=== PATIENT | male | born 1995 | race Caucasian/White ===

== ENCOUNTER 2022-12-24 07:24 | Observation (INO) | payer OTHER, SELFPAY ==
[2022-12-24] VITALS (13 sets, daily range): BP systolic 120–168; BP diastolic 63–106; PULSE 60–87; RESP 12–20; TEMP 35.7–36.8; O2SAT 97–100
--- NOTE | ~2022-12-24 | CT_ITS ---
EXAMINATION: CT brain wo con DATE: 12/24/2022 11:02 INDICATION: Syncope. TECHNIQUE: Computed tomography (CT) of the head was performed without intravenous contrast. The mA wa s adjusted according to patient size. Iterative reconstruction technique was employed. The dose-lengt h product was 605.33 mGy-cm. COMPARISON: None FINDINGS: There is no intracranial hemorrhage, acute infarction, or abnormal intracranial mass lesion . The ventricles are normal in size. There is mild mucosal thickening in right maxillary sinus. The o rbits are normal. The mastoid air cells are normal. IMPRESSION: 1. Normal brain. Reviewed, dictated and finalized at location A. AL AIDE IMPRESSION: 1. Normal brain.
--- NOTE | ~2022-12-24 | XR_ITS ---
EXAMINATION: XR chest 2V DATE: 12/24/2022 08:09 INDICATION: Syncope. TECHNIQUE: Frontal and lateral views of the chest were obtained. COMPARISON: None. FINDINGS: There is no pneumonia, pleural effusion, or pneumothorax. The heart size is normal. There i s mild chronic anterior wedging of T12, likely physiologic. IMPRESSION: 1. No acute cardiopulmonary disease. Reviewed, dictated and finalized at location A. 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
--- NOTE | 2022-12-24 07:42 | ECG_ITS ---
Measurements Intervals [place] Rate: 71 P: 33 VT: 127 QRS: -10 QRSD: 94 T: 31 QT: 368 QTc: 401 Interpretive Statements SINUS RHYTHM NORMAL ECG NO PREVIOUS ECG AVAILABLE FOR COMPARISON Electronically Signed On 12-24-2022 14:32:07 WARDROBE CUSTODIAN by Kristian Crooks D.O.
[2022-12-24 08:03] LABS: Appearance Urine Clear (Clear); Bilirubin Urine Negative (Negative); Blood Urine Negative (Negative); Color Urine Yellow (Yellow); Glucose Urine UA Negative (Negative); Ketones Urine Negative (Negative); Leukocyte Esterase Ur Negative LEU/UL (Negative); Nitrate Urine Negative (Negative); Protein Urine Negative (Negative); Specific Grav Ur 1.009 (1.001-1.035); Urobilinogen Urine 0.2 mg/dL (<2.0); pH Urine 6.5 (5.0-9.0)
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
[2022-12-24 08:15] LABS: Add Urine Microscopic? NO
[2022-12-24 08:18] LABS: Prothrombin Time 12.9 Seconds (11.1-14.7)
[2022-12-24 08:19] LABS: Amphetamine Screen Urine Negative (Negative); Barbiturate Screen Urine Negative (Negative); Benzodiazepines Screen Urine Negative (Negative); Cannabinoid Screen Urine Negative (Negative); Cocaine Screen Urine Negative (Negative); Methadone Screen Urine Negative (Negative); Opiate Screen Urine Negative (Negative); Phencyclidine Screen Urine Negative (Negative)
[2022-12-24 08:19] LABS: Partial Thromboplastin Time 30.5 SECONDS (22.3-36.8)
[2022-12-24 08:27] LABS: Alanine Aminotransferase 28 U/L (6-50); Albumin Level 4.9 g/dL (3.5-5.1); Alkaline Phosphatase 77 U/L (38-126); Anion Gap 5 mmol/L (8-16); Aspartate Amino Transferase 28 U/L (17-59); Bilirubin,Total 0.7 mg/dL (0.2-1.3); Blood Urea Nitrogen 13 mg/dL (9-20); Calcium 8.9 mg/dL (8.4-10.2); Carbon Dioxide 30 mmol/L (22-30); Chloride 100 mmol/L (98-107); Estimated CRCL calculation 127 ml/min; Estimated Glomerular Filt Rate > 60; Ethanol < 10 mg/dL (<10); Glucose 120 mg/dL (65-110); Potassium 4.1 mmol/L (3.4-5.0); Sodium 135 mmol/L (137-145)
[2022-12-24 08:38] LABS: Basophils Absolute Auto 0.1 K/mm3 (0.0-0.1); Basophils Percent Auto 0.9 % (0.2-1.2); Eosinophils Absolute Auto 0.1 K/mm3 (0-0.3); Eosinophils Percent Auto 0.9 % (0-4.4); Hematocrit 47.8 % (42.0-52.0); Hemoglobin 16.6 g/dL (14.0-18.0); Immature Granulocyte Absolute 0.01 K/mm3 (0.00-0.031); Immature Granulocyte Percent A 0.2 % (0-0.5); Lymphocytes Absolute Auto 1.24 K/mm3 (0.9-3.2); Lymphocytes Percent Auto 21.5 % (18.3-44.2); Mean Corpuscular HGB Conc 34.7 g/dl (32-36); Mean Corpuscular Hemoglobin 30.5 pg (26-34); Mean Corpuscular Volume 87.7 fl (80-100); Mean Platelet Volume 10.4 fl (7.4-10.4); Monocytes Absolute Auto 0.5 K/mm3 (0.1-0.6); Monocytes Percent Auto 8.8 % (2.6-8.5); Neutrophils Absolute Auto 3.9 K/mm3 (1.3-6.7); Neutrophils Percent Auto 67.7 % (45.5-73.1); Platelet Count Result 195 k/mm3 (150-375); Red Blood Count 5.45 M/mm3 (4.6-6.20); Red Cell Distribution Width 12.5 % (11.5-14.5); Troponin I < 0.012 ng/mL (0.000-0.034); White Blood Count 5.8 K/mm3 (4.5-10.0)
--- NOTE | 2022-12-24 13:33 | ADMGEN ---
This patient, Thomas Giraldo, was admitted to Medical Room 349-01 @ 1305. Patient/family oriented to hospital policies and general routines including ID bracelet, bed and alarms, visiting hours, pain management, procedures, bathroom and other care routines, personal items, smoking policy, room service/diet, and visiting hours. Information on how to activate the Rapid Response Team has been discussed. Patient/Family are encouraged to report perceived risks to care and to ask questions if they do not understand what they are told or what they should do.
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
[2022-12-25] VITALS (9 sets, daily range): BP systolic 121–131; BP diastolic 70–76; PULSE 56–81; RESP 18–22; TEMP 35.8–36.7; O2SAT 99–100
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
[2022-12-25] MEDS: ACETAMINOPHEN 325 MG TABLET 650 MG PO (12:13)
[2022-12-26] VITALS (15 sets, daily range): BP systolic 120–135; BP diastolic 63–76; PULSE 51–91; RESP 14–18; TEMP 36.2–36.7; O2SAT 99–100
--- NOTE | 2022-12-26 | ECHO_ITS ---
Patient Info Name: Thomas Giraldo Age: 27 years : 1995 Gender: Male Ht: 70 in Wt: 201 lbs BSA: 2.14 m2 HR: 71 bpm BP: 122 / 76 mmHg Heart Rhythm: Sinus Rhythm Technical Quality: Good Exam Date: 12/26/2022 11:15 AM Exam Location: [facility] Patient Status: Inpatient Admit Date: 12/24/2022 Staff Ordering Physician: Thomas Hernandez MD Facilities Mechanical Design Engineer: Christen Chen RDCS Attending Provider: Kimo Arreguin MD Referring Physician: David WASHINGTON; Exam Type: CA echo doppler w bubble study Study Info Indications R55 - Syncope and collapse Complete two-dimensional, color flow and Doppler transthoracic echocardiogram is performed with agitated saline. Contrast/Agitated Saline Contrast/Ag. Saline: Agitated Saline Amount: 20.00 ml Administered By: Loraine Nevarez RDCS Existing IV Access: Yes IV Access Condition: patent with no signs of infiltration Summary 1. Left ventricular chamber dimension is normal. 2. Left ventricular systolic function is normal, estimated at 60-65%. 3. The left ventricular diastolic function is normal. 4. Global longitudinal strain is normal at -18 %. 5. Right ventricular systolic function is normal. 6. Intact interatrial septum visualized by color flow and agitated saline imaging. Negative bubble study. 7. No significant valvular disease. Left Ventricle Left ventricular chamber dimension is normal. Left ventricular systolic function is normal, estimated at 60-65%. There is no increased left ventricular wall thickness. The left ventricular diastolic function is normal. Global longitudinal strain is normal at -18 %. Right Ventricle Right ventricular chamber dimension is normal. Right ventricular systolic function is normal. Left Atria Left atrial chamber dimension is normal. Right Atria Right atrial chamber dimension is normal. Atrial Septum Intact interatrial septum visualized by color flow and agitated saline imaging. Negative bubble study. Aortic Valve The aortic valve is trileaflet. There is no aortic valve stenosis. There is no aortic valve regurgitation. Pulmonic Valve The pulmonic valve is normal. There is no pulmonic regurgitation. Mitral Valve The mitral valve has normal leaflets. There is no mitral valve stenosis. There is trace mitral valve regurgitation. Tricuspid Valve The tricuspid valve leaflets are normal. There is trace tricuspid valve regurgitation. Pericardium/Pleural There is no pericardial effusion. Inferior Vena Cava Normal inferior vena cava with >50% collapse upon inspiration consistent with normal right atrial pressure, 3 mmHg. Aorta The aortic root size at the sinus of Valsalva is normal. Left Ventricular Outflow Tract Name Value Normal LVOT 2D LVOT Diameter 2.0 cm LVOT Doppler LVOT Peak Gradient 7 mmHg LVOT Mean Gradient 4 mmHg LVOT VTI 25 cm LVOT VTI/AV VTI Ratio 0.8 LVOT Stroke Volume
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
[2022-12-26 11:48] LABS: Basophils Absolute Auto 0.1 K/mm3 (0.0-0.1); Basophils Percent Auto 0.9 % (0.2-1.2); Eosinophils Absolute Auto 0.1 K/mm3 (0-0.3); Eosinophils Percent Auto 1.2 % (0-4.4); Hematocrit 45.9 % (42.0-52.0); Hemoglobin 16.3 g/dL (14.0-18.0); Immature Granulocyte Absolute 0.01 K/mm3 (0.00-0.031); Immature Granulocyte Percent A 0.2 % (0-0.5); Lymphocytes Absolute Auto 1.98 K/mm3 (0.9-3.2); Lymphocytes Percent Auto 34.5 % (18.3-44.2); Mean Corpuscular HGB Conc 35.5 g/dl (32-36); Mean Corpuscular Hemoglobin 30.3 pg (26-34); Mean Corpuscular Volume 85.3 fl (80-100); Mean Platelet Volume 10.3 fl (7.4-10.4); Monocytes Absolute Auto 0.7 K/mm3 (0.1-0.6); Monocytes Percent Auto 11.8 % (2.6-8.5); Neutrophils Percent Auto 51.4 % (45.5-73.1); Platelet Count Result 201 k/mm3 (150-375); Red Blood Count 5.38 M/mm3 (4.6-6.20); Red Cell Distribution Width 12.2 % (11.5-14.5); White Blood Count 5.7 K/mm3 (4.5-10.0)
[2022-12-26 12:03] LABS: Alanine Aminotransferase 29 U/L (6-50); Albumin Level 4.7 g/dL (3.5-5.1); Alkaline Phosphatase 59 U/L (38-126); Anion Gap 7 mmol/L (8-16); Aspartate Amino Transferase 24 U/L (17-59); Bilirubin,Total 1.5 mg/dL (0.2-1.3); Blood Urea Nitrogen 15 mg/dL (9-20); Calcium 8.7 mg/dL (8.4-10.2); Carbon Dioxide 29 mmol/L (22-30); Chloride 104 mmol/L (98-107); Estimated CRCL calculation 114 ml/min; Estimated Glomerular Filt Rate > 60; Glucose 87 mg/dL (65-110); Magnesium 2.1 mg/dL (1.6-2.3); Potassium 3.7 mmol/L (3.4-5.0); Sodium 140 mmol/L (137-145)
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
[2022-12-27] VITALS: PULSE 96
[2022-12-27 04:00] VITALS: PULSE 57
[2022-12-27 06:00] VITALS: BP 130/84; PULSE 68; RESP 18; TEMP 36.6; O2SAT 99
[2022-12-27 08:00] VITALS: PULSE 61
[2022-12-27 12:00] VITALS: PULSE 68
[2022-12-27 14:00] VITALS: BP 121/75; PULSE 68; RESP 18; TEMP 36.3; O2SAT 100
--- NOTE | 2022-12-30 20:04 | PM.DS ---
DS: Admitting Diagnosis Discharge Date 12/27/22 Admitting Diagnosis Syncope DS: Discharge Diagnosis Discharge Diagnosis (1) Syncope: Code(s): R55 - Syncope and collapse Status: Acute DS: Summary Hospital Course Reason for hospitalization: Syncope Hospital Course: 27 years old M presented with syncope. Cardiology was consulted, echo was WNL. Advised for 30 day holter monitor, no driving or operating heavy machinery untill cleared by cardiology. Discharged home in stable condition. Status at Discharge Functional status at discharge: independent ambulation Overall status at discharge: patient is progressing back to baseline Time Spent with Patient Time attestation: Total time spent providing and/or coordinating discharge services: Exam Narrative: General:?Well-developed, nontoxic-appearing male sitting up in bed no distress. Weight: 91.2 kg.? BMI: 28.8. HEENT:??Wearing corrective lenses. PERRL, EOMI. Sclera anicteric.? Oral mucosa moist. Neck:??Supple. No carotid bruits. Respiratory:?Lungs are clear to auscultation bilaterally. Cardiovascular:??Regular rate and rhythm with S1-S2.? No murmur, rub, or gallop. Gastrointestinal:??Abdomen is soft, nontender, and nondistended with positive bowel sounds. Skin:??Warm and dry.? No rash or lesions on limited exam. Extremities:??No cyanosis, clubbing, or edema. Radial and pedal pulses intact. Neurological:??Alert.? Cranial nerves 2-12 are grossly intact. No gross focal deficits to casual conversation. Psychiatric:??Pleasant and cooperative with normal mood and affect.? Judgment and insight intact. Discharge Plan Discharge Attending physician on discharge: Manda Jose Consulting providers: Wil Nj ; Yamilet Wyatt ; Carmen Silva ; Kristian Crooks ; Pietro Davidson V. ; Pk Fowler ; Ricardo Bahena Discharging Clinician: Manda Jose Anticipated Discharge Date/Time: 12/27/22 12:32 Patient Disposition: Home, Self-Care Activity: as tolerated Diet: regular Discharge Instructions: Recommendation from cardiology: Patient should refrain from driving or operating any equipment for the time being, at least until insurance claims assistant is complete. Patient Instructions: Antibiotic Form, Holter Monitor (GEN) Stand Alone Forms: General Discharge Information, Work/School Release IP Follow-up/Referrals: Jaguar Adame MD [Physician] - 1 Week Wil Nj DO [Physician] - 2 Weeks Discharge Medications: No Action No Home Medications Other Ambulatory Orders: CA cardiac event monitor (Routine) Timeframe: 1 Month Location: [facility] [place] [facility] Ordered By: Carmen Silva Date of admission: 12/24/22 11:16 Primary Care Provider: SantinoCassandra Admitting Provider: Kimo Arreguin Attending physician on admission: Manda Jose Condition: Stable [facility] Discharge Hospital Discharge: [id number] Hosp D/C >30 Min
== END 2022-12-27 15:25 | disposition home or self-care (01) ==
LOC: ANHED 08:17 → ANH3MED 12:49
PROVIDERS: Admitting Provider Internal Medicine; Emergency Provider Emergency Medicine; PCP Nurse Practitioner Adult Health; Visit Provider Internal Medicine
DX: R55 Syncope and collapse (principal); R03.0 Elevated blood-pressure reading, without diagnosis of hypertension; R00.2 Palpitations; F10.90 Alcohol use, unspecified, uncomplicated; Y90.0 Blood alcohol level of less than 20 mg/100 ml; V89.2XXA Person injured in unspecified motor-vehicle accident, traffic, initial encounter; Y92.411 Interstate highway as the place of occurrence of the external cause
CPT/HCPCS: 36415; 70450; 71046; 80053; 80307; 81003; 83735; 84443; 84484; 85025; 85610; 85730; 93005; 93306; 96375; 99285; A9270; G0378

== ENCOUNTER 2023-01-13 14:40 | Outpatient (CLI) | payer OTHER, SELFPAY ==
--- NOTE | ~2023-01-13 | US_ITS ---
US pelvic limited DATE: 01/13/2023 14:56 INDICATIN: Suprapubic pain, abdominal pain TECHNIQUE: Real-time imaging and color flow imaging COMPARISON: None FINDINGS: The urinary bladder appears unremarkable. No intraluminal mass lesion wall thickening is ev ident. Bilateral ureteral jets are demonstrated. IMPRESSION: No significant abnormality Reviewed, dictated and finalized at [facility]. Reviewed, dictated and finalized at location [facility]. IMPRESSION: No significant abnormality
== END 2023-01-13 14:41 ==
PROVIDERS: PCP Family Medicine; Visit Provider Family Medicine
DX: R10.9 Unspecified abdominal pain (principal)
CPT/HCPCS: 76857

== ENCOUNTER 2023-05-14 12:36 | Outpatient (CLI) | payer OTHER, SELFPAY ==
--- NOTE | ~2023-05-14 | CT_ITS ---
EXAMINATION: CT abdomen pelvis w con DATE: 05/14/2023 13:06 INDICATION: Localized swelling. Mass. Lump. TECHNIQUE: Computed tomography (CT) of the abdomen and pelvis was performed with 100 cc Omnipaque 350 intravenous contrast. The dose-length product was 669.27 mGy-cm. Automated exposure control and iter ative reconstruction technique were employed. COMPARISON: No prior studies for comparison. FINDINGS: Lung bases are unremarkable. Heart size normal. No significant pleural or pericardial effus ion. Fatty infiltration of the liver. The spleen, pancreas, adrenal glands and kidneys are unremarkab le. Gallbladder is present. Normal appendix. No significant vascular abnormality. No lymphadenopathy. No free air or free fluid. No soft tissue abnormality. Nonobstructive bowel pattern. No acute osseou s abnormality. IMPRESSION: 1. No acute abdominal abnormality. No findings to account for patient's symptoms. Reviewed, dictated and finalized at location [facility]. IMPRESSION: 1. No acute abdominal abnormality. No findings to account for patient's symptom s.
== END 2023-05-14 12:37 | disposition home or self-care (01) ==
PROVIDERS: PCP Family Medicine; Visit Provider Family Medicine
DX: R22.9 Localized swelling, mass and lump, unspecified (principal)
CPT/HCPCS: 74177; Q9967

== ENCOUNTER 2024-11-14 11:41 | Emergency (ER) | payer OTHER, SELFPAY ==
[2024-11-14 11:54] VITALS: BP 120/77; PULSE 120; RESP 18; TEMP 37.6; O2SAT 100
--- NOTE | 2024-11-14 12:10 | ED_ITS ---
HPI - URI/Sore Throat General Chief Complaint: Upper Respiratory Infection Stated Complaint: Fever Time Seen by Provider: 11/14/24 12:10 Source: patient Mode of arrival: ambulatory Limitations: no limitations History of Present Illness HPI Narrative: 29-year-old male presents with complaint of cough, congestion, fatigue, sore throat, body aches and chills for 2 days. No chest pain or shortness of breath. Denies nausea vomiting diarrhea. All systems reviewed and negative except as noted above. Related Data Allergies Allergy/AdvReac Type Severity Reaction Status Date / Time No Known Allergies Allergy Verified 11/14/24 11:56 Review of Systems Review of Systems: CONSTITUTIONAL: Reports fever, chills, or sweats. EYES: Denies visual changes, redness, or discharge. ENT: reports rhinorrhea, congestion, sore throat. Denies otalgia. CARDIOVASCULAR: Denies chest pain, palpitations, or edema. RESPIRATORY: reports cough. Denies dyspnea. GASTROINTESTINAL: Denies abdominal pain, nausea, vomiting, or diarrhea. GENITOURINARY: Denies dysuria or hematuria. SKIN: Denies rash or itching. MUSCULOSKELETAL: Denies back pain, joint pain, or myalgia. NEUROLOGIC: Denies headache, numbness, or weakness. PSYCHIATRIC: Denies anxiety or depression. All other systems reviewed are negative, except as documented in HPI. [facility] Past Medical History Medical History Healthy adult male Surgical History Surgical History No history of previous surgery Family History Family History Mother , age 40 in a motor vehicle accident. No problems noted. Father Unknown family medical history Sibling Asthma Grandparent Cancer Diabetes mellitus Social History Social History Social History: Surrogate medical decision maker: Imelda Pope, friend. Code status: Full code. Smoking status: Never smoker Second hand tobacco smoke exposure: No Alcohol intake: current Drinks per week: 1 Substance use: never Lack of Transportation: No Lack of Food: Never True Current Housing: I Have Housing Concerned About Future Housing: No Difficulty Paying Gas/Electric Bills: No Difficulty Paying for Meds: No Currently Unemployed: No Education: High School Diploma/GED Difficulty w/ Childcare or Family Care: No Additional living arrangements comments: Lives in [place] with significant other and their 9-year-old daughter. Additional occupation/education comments: Works for [employer]. Spiritual care concerns: No Comments At time of signature, agree with nursing past medical, surgical, social and family history. There is no relevant family history pertinent to the presenting complaint. Exam Narrative: GENERAL: This is a well-nourished, well-developed patient, ill-appearing but no acute distress HEAD: normocephalic, atraumatic. EYES: PERRL. Sclera clear/white. Vision is grossly intact. EARS: External ears normal, auditory canals clear and without drainage, TMs normal without perforation. Hearing grossly intact. NOSE: External nose normal with congestion and clear nasal drainage THROAT: Mucous membranes moist, mild erythema without swelling or exudates NECK: Neck supple, non-tender without lymphadenopathy, masses or thyromegaly. CARDIOVASCULAR: Regular rate and rhythm without murmurs, gallops, or rubs. RESPIRATORY: Clear to auscultation. Breath sounds equal bilaterally. No wheezes, rales, or rhonchi. SKIN: warm, Dry, intact with no suspicious lesions or rash, good texture and turgor. NEURO: awake, alert, and oriented to person, place and time. There were no obvious focal neurologic abnormalities. EXTREMITIES: No joint tenderness, effusion, or edema noted. Course Course Level of Care: Express Care Visit Vital Signs Vital signs: Vital Signs Temperature 37.6 C H 11/14/24 11:54 Pulse Rate 120 H 11/14/24 11:54 Respiratory Rate 18 11/14/24 11:54 Blood Pressure 120/77 11/14/24 11:54 Pulse Oximetry 100 11/14/24 11:54 Oxygen Delivery Room Air 11/14/24 11:54 Temperature 37.6 C H 11/14/24 11:54 Pulse Rate 120 H 11/14/24 11:54 Respiratory Rate 18 11/14/24 11:54 Blood Pressure 120/77 11/14/24 11:54 Pulse Oximetry 100 11/14/24 11:54 Oxygen Delivery Room Air 11/14/24 11:54 reviewed MDM - URI/Sore Throat MDM Narrative Medical decision making narrative: positive for influenza A. Discussed results with patient. Patient is alert, nontoxic. Will treat with Tamiflu. Patient agrees with plan of care. Patient is aware of diagnosis, understands and agrees to treatment plan. Anticipatory guidance given. Patient agrees to follow-up as directed and is aware of reasons to seek care at the emergency department. Portions of this record may have been created with voice recognition software Differential Diagnosis Differential diagnosis: Likely upper respiratory infection, sinusitis, viral infection, influenza and pharyngitis Discharge Plan Discharge Clinical Impression: Influenza A Patient Disposition: Home, Self-Care Condition: Stable Instructions: Influenza (ED) Additional Instructions: your influenza test was positive today. Influenza is a virus and symptoms may last 10-14 days. Take an [id number] medication to treat her symptoms such as DayQuil NyQuil cold and flu. Take ibuprofen every 6-8 hours as needed for pain and fever. Drink at least 64 oz of water a day. Follow-up with your primary care physician if symptoms are not improving. Patient Language: Malaysian Prescriptions: New oseltamivir [Tamiflu] 75 mg capsule 75 mg PO Q12H 5 Days Qty: 10 0RF Follow-up/Referrals: Ondina,Wil Weinstein, [Primary Care Provider] - Stand Alone Forms: Work/School Release IP Time of Disposition: 12:17
[2024-11-14 12:24] LABS: EDCOVIDSCREEN Negative (Negative); EDINFLUASCREEN Positive (Negative); EDINFLUBSCREEN Negative (Negative)
--- OUTSIDE RECORDS SUMMARY | 2024-11-15 04:43 | XMS_ITS | Clinical Summary ---
Author Organization [facility] Address [address] [place] [address] Phone Care Team Providers Care Couture Alterations Dressmaker Name Role Phone Wil Nj DO Primary Care Provider [phone] Jluis Pérez MD Unavailable [phone] Allergies No known active allergies Medications No known medications Family History Medical History Relation Name Comments Other-comment Mother MVA Relation Name Status Comments Mother Social History Tobacco Use Types Packs/Day Years Used Date Smoking Tobacco: Never Tobacco Cessation:Counseling Given: Not Answered Alcohol Use Standard Drinks/Week Comments Yes 0 (1 standard drink = 0.6 oz pur e alcohol) 1 Sex and Gender Information Value Date Recorded Sex Assigned at Not on file Legal Sex Male 2:06 PM 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 Gender Identity Not on file Sexual Orientation Not on file Last Filed Vital Signs Vital Sign Reading Time Taken Comments Blood Pressure 136/86 04/27/2023 1:37 PM CDT Pulse 66 04/27/2023 1:37 PM CDT Temperature 35.9 ??C (96.6 ??F) 04/27/2023 1:37 PM CD T Respiratory Rate 18 04/27/2023 1:37 PM CDT Oxygen Saturation 97% 04/27/2023 1:37 PM CDT Inhaled Oxygen Concentration - - Weight 93 kg (205 lb) 04/27/2023 1:37 PM CDT Height 177.8 cm (5' 10 ) 04/27/2023 1:37 PM CDT Body Mass Index 29.41 04/27/2023 1:37 PM CDT Plan of Treatment Health Maintenance Due Date Last Done Comments Hepatitis C Virus (HCV) Screening 1997 Hepatitis B Immunization (1 of 3 - 19+ 3-dose series) 02/24/2016 Influenza Immunization (#1) 06/23/202408/23, 07/27/2017 SARS-COV-2 Immunization (3 - 2023- season) 2024 03/28/2021, 03/07/2021 Respiratory Syncytial Virus (RSV) Immunization (Adult) (1 - 1-dose 75+ series) 02/24/2072 DTaP/Tdap/Td Immunization Discontinued 09/06/2021 TdaP Immunization Completed 09/06/2021 Meningococcal Immunization (ACWY) Aged Out No longer eligible based on patient's age to complete this topic Pneumococcal Immunization Combined Aged Out No longer eligible based on patient's age to complete this topic Rotavirus Immunization Aged Out No lo nger eligible based on patient's age to complete this topic Insurance Care Teams Couture Alterations Dressmaker Relationship Specialty Start Date End Date Wil Nj DO [facility] [place] [address] [place] [address] PCP - General Family Medicine 06/01/23 Jluis Pérez MD [address] [place] [address] Consulting Physician Neurology 04/27/23
== END 2024-11-14 12:26 | disposition home or self-care (01) ==
PROVIDERS: Emergency Provider Nurse Practitioner Family; PCP Family Medicine
DX: J10.1 Influenza due to other identified influenza virus with other respiratory manifestations (principal); Z20.822 Contact with and (suspected) exposure to COVID-19
CPT/HCPCS: 87426; 87804; 99213; G0463